=== PATIENT | female | born 1995 | race Two or more races ===

== ENCOUNTER 2023-04-28 09:53 | Emergency (ER) | payer OTHER ==
[~2023-04-28] VITALS: Ht 170.2 cm; Wt 78.5 kg
== END 2023-04-28 11:34 | disposition home or self-care (01) ==
LOC: ER 09:53
DX: M54.50 Low back pain, unspecified (principal); Z88.8 Allergy status to other drugs, medicaments and biological substances

== ENCOUNTER 2023-05-25 08:39 | Emergency (ER) | payer OTHER ==
[~2023-05-25] VITALS: Ht 170.2 cm; Wt 77.1 kg
== END 2023-05-25 10:06 | disposition home or self-care (01) ==
LOC: ER 08:40
DX: J06.9 Acute upper respiratory infection, unspecified (principal); Z88.8 Allergy status to other drugs, medicaments and biological substances